=== PATIENT | male | born 1975 ===

== ENCOUNTER 2024-09-08 19:12 | Observation (INO) | payer SELFPAY ==
[2024-09-08] VITALS (29 sets, daily range): BP systolic 103–142; BP diastolic 70–89; PULSE 62–157; RESP 12–20; TEMP 36.6; O2SAT 99–100
--- NOTE | ~2024-09-08 | XR_ITS ---
EXAMINATION: XR chest 1V portable Exam Date/Time: 09/08/2024 20:00 CDT HISTORY: chest pain Comparison: None. RESULT: Lines, tubes, and devices: None. Lungs and pleura: Leftward rotation. No focal consolidation, pleural effusion, or pneumothorax. Mild diffuse reticular opacities with indistinct vessels. Cardiomediastinal silhouette: Stable. Other: No acute osseous or upper abdominal finding. IMPRESSION: Mild interstitial edema. Reviewed, dictated and finalized at location K. IMPRESSION: Mild interstitial edema.
--- NOTE | 2024-09-08 19:15 | ECG_ITS ---
Test Date: 2024-09-08 19:24:55 Measurements Intervals [place] Rate: 163 P: 0 DE: 0 QRS: 75 QRSD: 103 T: -14 QT: 266 QTc: 439 Interpretive Statements ATRIAL FIBRILLATION WITH RAPID VENTRICULAR RESPONSE INCOMPLETE RIGHT BUNDLE BRANCH BLOCK [90+ ms QRS DURATION, TERMINAL R IN V1/V2, 40+ ms S IN I/aVL/V4/V5/V6] NONSPECIFIC ST & T-WAVE ABNORMALITY No previous ECG available for comparison Electronically Signed On 09-09-2024 12:47:05 CDT by William Bustos M.D.
--- OUTSIDE RECORDS SUMMARY | 2024-09-08 19:15 | XMS_ITS | Clinical Summary ---
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 Gender Identity Not on file Sexual Orientation Not on file Plan of Treatment Health Maintenance Due Date Last Done Comments Hepatitis C Virus (HCV) Screening 1975 TdaP Immunization 1975 Hepatitis B Immunization (1 of 3 - 19+ 3-dose series) 11/19/1994 Colonoscopy 11/19/2020 Colorectal Cancer Screening 11/19/2020 Influenza Immunization (#1) 2024 SARS-COV-2 Immunization ( season) 2024 Respiratory Syncytial Virus (RSV) Immunization (Adult) (1 - 1-dose 75+ series) 11/19/2050 Meningococcal Immunization (ACWY) Aged Out No longer eligible based on patient's age to complete this topic Pneumococcal Immunization Combined Aged Out No longer eligible based on patient's age to complete this topic Rotavirus Immunization Aged Out No lo nger eligible based on patient's age to complete this topic
[2024-09-08 19:45] LABS: Basophils Absolute Auto 0.1 K/mm3 (0.0-0.1); Basophils Percent Auto 0.7 % (0.2-1.2); Eosinophils Absolute Auto 0.3 K/mm3 (0-0.3); Eosinophils Percent Auto 2.4 % (0-4.4); Hematocrit 45.4 % (42.0-52.0); Hemoglobin 14.8 g/dL (14.0-18.0); Immature Granulocyte Absolute 0.05 K/mm3 (0.00-0.031); Immature Granulocyte Percent A 0.5 % (0-0.5); Lymphocytes Absolute Auto 2.96 K/mm3 (0.9-3.2); Lymphocytes Percent Auto 27.8 % (18.3-44.2); Mean Corpuscular HGB Conc 32.6 g/dl (32-36); Mean Corpuscular Hemoglobin 30.4 pg (26-34); Mean Corpuscular Volume 93.2 fl (80-100); Mean Platelet Volume 10.3 fl (7.4-10.4); Monocytes Absolute Auto 0.8 K/mm3 (0.1-0.6); Monocytes Percent Auto 7.9 % (2.6-8.5); Neutrophils Absolute Auto 6.5 K/mm3 (1.3-6.7); Neutrophils Percent Auto 60.7 % (45.5-73.1); Platelet Count Result 217 k/mm3 (150-375); Red Blood Count 4.87 M/mm3 (4.6-6.20); White Blood Count 10.6 K/mm3 (4.5-10.0)
[2024-09-08] MEDS: ASPIRIN 81 MG CHEWABLE TABLET 324 MG PO (19:48)
[2024-09-08] MEDS: dilTIAZem HCl INJ 25 MG/5 ML VIAL 10 MG IV PUSH (19:49)
[2024-09-08] MEDS: dilTIAZem 100 MG/100 ML 100 MG/100 ML BAG IV CONT (19:52)
--- NOTE | 2024-09-08 19:54 | ED_ITS ---
HPI - Chest Pain General Chief Complaint: Chest Pain <JOSEPHINE Waddell Last Filed: 09/09/24 01:59> Stated Complaint: Chest pain, heart racing <JOSEPHINE Waddell Last Filed: 09/09/24 01:59> Time Seen by Provider: 09/08/24 19:45 <Dudley Traylor PA-C - Last Filed: 09/09/24 01:59> Source: patient <JOSEPHINE Waddell Last Filed: 09/09/24 01:59> Mode of arrival: ambulatory <JOSEPHINE Waddell Last Filed: 09/09/24 01:59> Limitations: no limitations <JOSEPHINE Waddell Last Filed: 09/09/24 01:59> History of Present Illness HPI narrative: This is a 40-year-old male who presents to the ED for chief complaint of chest pain and palpitations beginning around 5:00 a.m. this morning. Patient states that the pain is intermittent and only lasts a few minutes when it comes on. Pains reports pain to the left side of the chest. He does note some tingling through the fingers. States the palpitations have been intermittent as well and does feel like his heart is racing. Denies leg swelling, shortness of breath. Denies any specific exertional component to the pain. Denies cardiac history. States he smokes 1 pack per day. <Dudley Traylor PA-C - Last Filed: 09/09/24 01:59> Related Data Allergies/Adverse Reactions: Allergies Allergy/AdvReac Type Severity Reaction Status Date / Time No Known Allergies Allergy Unverified 09/08/24 19:12 <Dudley Traylor PA-C - Last Filed: 09/09/24 01:59> Review of Systems 2 Review of Systems: All systems as dictated in HPI <Dudley Traylor PA-C - Last Filed: 09/09/24 01:59> [facility] Social History Social History: Social History Smoking packs per day: 1 Smoking cigarettes per day: 20.0 Years smoked: 35 Smoking pack-years: 35.00 Smoking status: Current every day smoker Tobacco type: cigarettes Second hand tobacco smoke exposure: No Alcohol intake: current Drinks per week: 3 Substance use: never Do You Feel Safe in your Home?: Yes Lack of Transportation: No Lack of Food: Never True Current Housing: I Have Housing Concerned About Future Housing: No Difficulty Paying Gas/Electric Bills: No Difficulty Paying for Meds: No Currently Unemployed: No Education: High School Diploma/GED Difficulty w/ Childcare or Family Care: No Spiritual care concerns: No <Dudley Traylor PA-C - Last Filed: 09/09/24 01:59> Exam 2 Narrative: GENERAL: Well-appearing, well-nourished, and in no acute distress. HEAD: Normocephalic, atraumatic. EYES: PERRLA and EOMI. ENT: Nares clear, no rhinorrhea or epistaxis. Mucous membranes moist. Oropharynx without tonsillar hypertrophy exudate or other lesions. NECK: Supple. No adenopathy or masses. CHEST: No respiratory distress. Clear to auscultation. No wheezes rales or rhonchi HEART: Tachycardic, regular rhythm. No murmur heard. Normal peripheral pulses. ABDOMEN: Soft, nontender, nondistended, normal active bowel sounds. MSK: Normal range of motion. No edema. SKIN: Warm, dry, no rash. NEURO: Alert and oriented x4. No focal deficits. PSYCH: Normal mood and affect. <Dudley Traylor PA-C - Last Filed: 09/09/24 01:59> Course MANAGER STRATEGIC ALLIANCES/PA Physician Supervision For this patient encounter, I reviewed the MANAGER STRATEGIC ALLIANCES or PA documentation, treatment plan, and medical decision making; and I had [id number] time with this patient. <Jose Rafael Park MD - Last Filed: 09/15/24 07:18> Vital Signs Vital signs: Vital Signs Temperature 98 F 09/08/24 19:16 Pulse Rate 70 09/08/24 19:16 Respiratory Rate 15 09/08/24 19:16 Blood Pressure 142/87 H 09/08/24 19:16 Pulse Oximetry 100 09/08/24 19:16 Oxygen Delivery Room Air 09/08/24 19:16 Temperature 97.2 F L 09/09/24 14:00 Pulse Rate 57 L 09/09/24 16:00 Respiratory Rate 18 09/09/24 14:00 Blood Pressure 122/85 09/09/24 14:00 Pulse Oximetry 97 09/09/24 14:00 Oxygen Delivery Room Air 09/09/24 08:00 <Dudley Traylor PA-C - Last Filed: 09/09/24 01:59> Vital Signs Temperature 98 F 09/08/24 19:16 Pulse Rate 70 09/08/24 19:16 Respiratory Rate 15 09/08/24 19:16 Blood Pressure 142/87 H 09/08/24 19:16 Pulse Oximetry 100 09/08/24 19:16 Oxygen Delivery Room Air 09/08/24 19:16 Temperature 97.2 F L 09/09/24 14:00 Pulse Rate 57 L 09/09/24 16:00 Respiratory Rate 18 09/09/24 14:00 Blood Pressure 122/85 09/09/24 14:00 Pulse Oximetry 97 09/09/24 14:00 Oxygen Delivery Room Air 09/09/24 08:00 <Jose Rafael Park MD - Last Filed: 09/15/24 07:18> MDM - Chest Pain MDM Narrative Medical decision making narrative: This is a 40-year-old male who presents to the ED for chief complaint of intermittent palpitations and chest pain beginning this morning. Vitals on arrival are normal, however shortly after patient is placed on his initial EKG shows AFib with a rate in the 160s. Blood pressure stable in the 140s. Laboratory workup coming back remarkable for elevated troponin initially at 0.046 BNP elevated at 1930. D-dimer negative. 3 hour troponin flat at 0.045. Chest x-ray shows interstitial edema but no other acute findings. Heart score 4. Patient was started on diltiazem push and drip for AFib RVR. He did have good effect with the drip and actually converted to sinus rhythm while in the ED. Repeat EKG does show sinus rhythm, however there are T-wave inversions noted through anterior leads. No significant ST depression or ST elevation. Patient is agreeable to stay in the hospital for observation. Discussed case with hospitalist who agrees to admit the patient to [facility]. Plan for echo in the morning. <Dudley Traylor PA-C - Last Filed: 09/09/24 01:59> Lab Data Result diagrams: 09/08/24 19:36 09/09/24 06:46 <Dudley Traylor PA-C - Last Filed: 09/09/24 01:59> Labs: Lab Results 09/08/24 09/08/24 09/08/24 Range/Units 19:35 19:36 22:36 WBC 10.6 H (4.5-10.0) K/mm3 RBC 4.87 (4.6-6.20) M/mm3 Hgb 14.8 (14.0-18.0) g/dL Hct 45.4 (42.0-52.0) % MCV 93.2 (80-100) fl MCH 30.4 (26-34) pg MCHC 32.6 (32-36) g/dl RDW 13.0 (11.5-14.5) % Plt Count 217 (150-375) k/mm3 MPV 10.3 (7.4-10.4) fl Immature Gran % (Auto) 0.5 (0-0.5) % Neut % (Auto) 60.7 (45.5-73.1) % Lymph % (Auto) 27.8 (18.3-44.2) % [place] % (Auto) 7.9 (2.6-8.5) % Eos % (Auto) 2.4 (0-4.4) % Baso % (Auto) 0.7 (0.2-1.2) % Lymph # (Auto) 2.96 (0.9-3.2) K/mm3 [place] # (Auto) 0.8 H (0.1-0.6) K/mm3 Eos # (Auto) 0.3 (0-0.3) K/mm3 Baso # (Auto) 0.1 (0.0-0.1) K/mm3 Abs Immat Gran (auto) 0.05 H (0.00-0.031) K/mm3 Absolute Neuts (auto) 6.5 (1.3-6.7) K/mm3 Absolute Nucleated RBC 0.000 (0.0-0.012) K/mm3 Nucleated RBC % 0.0 (0.0-0.2) % PT 13.8 (11.1-14.7) Seconds INR 1.0 APTT 29.5 (22.3-36.8) Seconds D-Dimer < 0.27 (<0.48) ug/mL Sodium 141 (137-145) mmol/L Potassium 3.4 (3.4-5.0) mmol/L Chloride 103 (98-107) mmol/L Carbon Dioxide 30 (22-30) mmol/L Anion Gap 8 (4-12) mmol/L BUN 10 (9-20) mg/dL Creatinine 0.82 (0.7-1.3) mg/dL Estim Creat Clear Calc 109 ml/min Estimated GFR > 60 (59 - ) Glucose 142 H (65-110) mg/dL Calcium 9.2 (8.4-10.2) mg/dL Magnesium 2.1 (1.6-2.3) mg/dL Total Bilirubin 0.9 (0.2-1.3) mg/dL AST 19 (17-59) U/L ALT 22 (6-50) U/L Alkaline Phosphatase 69 (38-126) U/L Troponin I 0.046 H* 0.045 H* (0.000-0.034) ng/mL NT-Pro-B Natriuret Pep 1930 H (19.9-100) pg/mL Total Protein 7.0 (6.3-8.2) g/dL Albumin 4.3 (3.5-5.1) g/dL Lipase 16 L (23-300) U/L TSH 1.460 (0.465-4.680) uIU/mL <Dudley Traylor PA-C - Last Filed: 09/09/24 01:59> Lab Results 09/08/24 09/08/24 09/08/24 Range/Units 19:35 19:36 22:36 WBC 10.6 H (4.5-10.0) K/mm3 RBC 4.87 (4.6-6.20) M/mm3 Hgb 14.8 (14.0-18.0) g/dL Hct 45.4 (42.0-52.0) % MCV 93.2 (80-100) fl MCH 30.4 (26-34) pg MCHC 32.6 (32-36) g/dl RDW 13.0 (11.5-14.5) % Plt Count 217 (150-375) k/mm3 MPV 10.3 (7.4-10.4) fl Immature Gran % (Auto) 0.5 (0-0.5) % Neut % (Auto) 60.7 (45.5-73.1) % Lymph % (Auto) 27.8 (18.3-44.2) % [place] % (Auto) 7.9 (2.6-8.5) % Eos % (Auto) 2.4 (0-4.4) % Baso % (Auto) 0.7 (0.2-1.2) % Lymph # (Auto) 2.96 (0.9-3.2) K/mm3 [place] # (Auto) 0.8 H (0.1-0.6) K/mm3 Eos # (Auto) 0.3 (0-0.3) K/mm3 Baso # (Auto) 0.1 (0.0-0.1) K/mm3 Abs Immat Gran (auto) 0.05 H (0.00-0.031) K/mm3 Absolute Neuts (auto) 6.5 (1.3-6.7) K/mm3 Absolute Nucleated RBC 0.000 (0.0-0.012) K/mm3 Nucleated RBC % 0.0 (0.0-0.2) % PT 13.8 (11.1-14.7) Seconds INR 1.0 APTT 29.5 (22.3-36.8) Seconds D-Dimer < 0.27 (<0.48) ug/mL Sodium 141 (137-145) mmol/L Potassium 3.4 (3.4-5.0) mmol/L Chloride 103 (98-107) mmol/L Carbon Dioxide 30 (22-30) mmol/L Anion Gap 8 (4-12) mmol/L BUN 10 (9-20) mg/dL Creatinine 0.82 (0.7-1.3) mg/dL Estim Creat Clear Calc 109 ml/min Estimated GFR > 60 (59 - ) Glucose 142 H (65-110) mg/dL Calcium 9.2 (8.4-10.2) mg/dL Magnesium 2.1 (1.6-2.3) mg/dL Total Bilirubin 0.9 (0.2-1.3) mg/dL AST 19 (17-59) U/L ALT 22 (6-50) U/L Alkaline Phosphatase 69 (38-126) U/L Troponin I 0.046 H* 0.045 H* (0.000-0.034) ng/mL NT-Pro-B Natriuret Pep 1930 H (19.9-100) pg/mL Total Protein 7.0 (6.3-8.2) g/dL Albumin 4.3 (3.5-5.1) g/dL Lipase 16 L (23-300) U/L TSH 1.460 (0.465-4.680) uIU/mL <Jose Rafael Park MD - Last Filed: 09/15/24 07:18> Discharge Plan Discharge Clinical Impression: Paroxysmal A-fib, Chest pain <Dudley Traylor PA-C - Last Filed: 09/09/24 01:59> Patient Disposition: Still a Patient <Dudley Traylor PA-C - Last Filed: 09/09/24 01:59> Condition: Stable <Dudley Traylor PA-C - Last Filed: 09/09/24 01:59> Quality HEART score for chest pain patients History: slightly suspicious <Dudley Traylor PA-C - Last Filed: 09/09/24 01:59> ECG: non specific repolarization disturbance/LBTB/PM <Dudley Traylor PA-C - Last Filed: 09/09/24 01:59> Age: > 45 and < 65 years <Dudley Traylor PA-C - Last Filed: 09/09/24 01:59> Risk factors: 1 or 2 risk factors <Dudley Traylor PA-C - Last Filed: 09/09/24 01:59> Troponin: > 1 and < 3x normal limit <Dudley Traylor PA-C - Last Filed: 09/09/24 01:59> Heart score: 4 <Dudley Traylor PA-C - Last Filed: 09/09/24 01:59> 4 <Jose Rafael Park MD - Last Filed: 09/15/24 07:18>
--- NOTE | 2024-09-08 19:54 | PC.NURSE ---
ELHAM from EDP Dr. Park to titrate Cardizem drip to 7.5mg/hr
[2024-09-08 19:55] LABS: Alanine Aminotransferase 22 U/L (6-50); Albumin Level 4.3 g/dL (3.5-5.1); Alkaline Phosphatase 69 U/L (38-126); Anion Gap 8 mmol/L (4-12); Aspartate Amino Transferase 19 U/L (17-59); Bilirubin,Total 0.9 mg/dL (0.2-1.3); Blood Urea Nitrogen 10 mg/dL (9-20); Calcium 9.2 mg/dL (8.4-10.2); Carbon Dioxide 30 mmol/L (22-30); Chloride 103 mmol/L (98-107); Estimated CRCL calculation 109 ml/min; Estimated Glomerular Filt Rate > 60; Glucose 142 mg/dL (65-110); Lipase 16 U/L (23-300); Potassium 3.4 mmol/L (3.4-5.0); Sodium 141 mmol/L (137-145)
[2024-09-08 19:56] LABS: Prothrombin Time 13.8 Seconds (11.1-14.7)
[2024-09-08 19:57] LABS: Partial Thromboplastin Time 29.5 Seconds (22.3-36.8)
[2024-09-08] MEDS: LACTATED RINGERS 1,000 ML 999 ML IV CONT (19:57)
--- OUTSIDE RECORDS SUMMARY | 2024-09-08 20:03 | XMS_ITS | Clinical Summary ---
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
[2024-09-08 20:08] LABS: Troponin I 0.046 ng/mL (0.000-0.034)
[2024-09-08 20:23] LABS: D Dimer < 0.27 ug/mL (<0.48)
[2024-09-08 21:01] LABS: NT Pro B Type Natriuretic Pept 1930 pg/mL (19.9-100)
--- NOTE | 2024-09-08 21:23 | ECG_ITS ---
Test Date: 2024-09-08 21:27:43 Measurements Intervals [place] Rate: 60 P: 66 [place]: 151 QRS: 73 QRSD: 114 T: 55 QT: 394 QTc: 395 Interpretive Statements SINUS RHYTHM INCOMPLETE RIGHT BUNDLE BRANCH BLOCK [90+ ms QRS DURATION, TERMINAL R IN V1/V2, 40+ ms S IN I/aVL/V4/V5/V6] ST DEVIATION AND MODERATE T-WAVE ABNORMALITY, CONSIDER ANTERIOR ISCHEMIA [-0.1+ mV T-WAVE IN V3/V4] Compared to ECG 09/08/2024 19:24:55 Atrial fibrillation no longer present Electronically Signed On 09-09-2024 12:48:05 CDT by William Bustos M.D.
--- NOTE | 2024-09-08 21:31 | PC.NURSE ---
Pt converted to Normal Sinus Rhythm @2119. Provider made aware and VORB to pause Diltazem drip. Repeat EKG preformed.
[2024-09-08 21:47] LABS: Magnesium 2.1 mg/dL (1.6-2.3)
[2024-09-08 23:14] LABS: Troponin I 0.045 ng/mL (0.000-0.034)
[2024-09-09] VITALS (12 sets, daily range): BP systolic 114–131; BP diastolic 68–88; PULSE 57–93; RESP 15–18; TEMP 36.2–37; O2SAT 95–100; BMI 27.6
--- NOTE | 2024-09-09 | ECHO_ITS ---
Patient Info Name: Mason Flores Age: 48 years : 1975 Gender: Male Ht: 73 in Wt: 209 lbs BSA: 2.22 m2 HR: 70 bpm BP: 130 / 80 mmHg Heart Rhythm: Sinus Rhythm Technical Quality: Fair Exam Date: 09/09/2024 1:32 PM Exam Location: Echo Lab Patient Status: Inpatient Admit Date: 09/09/2024 Staff Ordering Physician: William Bustos MD (ana/luigi) Chief Cruiser: Martha Sher RDCS Attending Provider: Rose Barreto DO Referring Physician: Akash NIEVES; Exam Type: CA echo dop color flow w con Study Info Indications - Afib Complete two-dimensional, color flow and Doppler transthoracic echocardiogram is performed with contrast to opacify the left ventricle and to improve the deliniation of the left ventricle endocardial borders. Contrast/Agitated Saline Contrast/Ag. Saline: Definity Amount: 3.00 ml Administered By: Martha Sher RDCS Existing IV Access: Yes IV Access Condition: patent with no signs of infiltration Summary 1. Left ventricular chamber dimension is normal. 2. Left ventricular systolic function is normal, estimated at 55-60%. 3. The left ventricular diastolic function is grade I diastolic dysfunction. 4. Right ventricular systolic function is normal. 5. There is trivial anterior pericardial effusion. 6. No significant valvular disease. Left Ventricle Left ventricular chamber dimension is normal. Left ventricular systolic function is normal, estimated at 55-60%. There is no increased left ventricular wall thickness. The left ventricular diastolic function is grade I diastolic dysfunction. Right Ventricle Right ventricular chamber dimension is normal. Right ventricular systolic function is normal. Left Atria Left atrial chamber dimension is normal. Right Atria Right atrial chamber dimension is normal. Atrial Septum Intact interatrial septum visualized by color flow imaging. Aortic Valve The aortic valve is not well visualized. There is no aortic valve stenosis. There is trace aortic valve regurgitation. There is mild aortic valve calcification. Pulmonic Valve The pulmonic valve is not well visualized. Mitral Valve There is trace mitral valve regurgitation. Tricuspid Valve There is trace tricuspid valve regurgitation. Pericardium/Pleural There is trivial anterior pericardial effusion. Inferior Vena Cava Dilated inferior vena cava with <50% collapse upon inspiration consistent with elevated right atrial pressure, 15 mmHg. Aorta The aortic root size at the sinus of Valsalva is normal. Left Ventricular Outflow Tract Name Value Normal LVOT 2D LVOT Diameter 2.84 cm LVOT Doppler LVOT Peak Gradient 2 mmHg LVOT Mean Gradient 1 mmHg LVOT VTI 15.47 cm LVOT VTI/AV VTI Ratio 0.51 LVOT Stroke Volume 97.87 ml LVOT CO 5.67 l/min LVOT CI 2.55 L/min/m2 Pulmonic Valve Name Value Normal RVOT Doppler RVOT Peak Gradient 1 mmHg PV Doppler PV Peak Gradient 3 mmHg Mitral Valve Name Value Normal MV Doppler MV Decel Porter 247.31 cm/s2 MV PHT 0 s MV Area (PHT) 3.50 cm2 4.00-5.00 MV Diastolic Function MV E Peak Velocity 53.65 cm/s MV A Peak Velocity 54.91 cm/s MV E/A 0.98 MV Decel Time 0 s MV Annular TDI MV E/e' (Septal) 7.49 <=8.00 MV E/e' (Lateral) 5.51 <=8.00 MV E/e' (Average) 6.50 Tricuspid Valve Name Value Normal TV Regurgitation Doppler TR Peak Velocity 159.40 cm/s TR Peak Gradient 10 mmHg Estimated PAP/RSVP RA Pressure 15 mmHg <=5 PA Systolic Pressure 25 mmHg <36 RV Systolic Pressure 25 mmHg <36 Aorta Name Value Normal Ascending Aorta Ao Root Diameter (MM) 4.52 cm Ao Root Diam Index (MM) 2.03 cm/m2 Aortic Valve Name Value Normal AV Doppler AV Peak Velocity 159.72 cm/s AV Peak Gradient 10 mmHg AV Mean Gradient 5 mmHg AV VTI 30.09 cm AV Area (Cont Eq VTI) 3.25 cm2 >=3.00 AV Area (Cont Eq Tacho) 3.04 cm2 AV Regurgitation 2D LVOT Area 6.33 cm2 Ventricles Name Value Normal LV Dimensions 2D/MM IVS Diastolic Thickness (2D) 0.76 cm 0.60-1.00 LVID Diastole (2D) 5.33 cm 4.20-5.80 LVIW Diastolic Thickness (2D) 0.83 cm 0.60-1.00 LVID Systole (2D) 3.69 cm 2.50-4.00 LVOT Diameter 2.84 cm LV Mass (2D Cubed) 150.24 g 88.00-224.00 LV Mass Index (2D Cubed) 0.01 g/cm2 0.00-0.01 Relative Wall Thickness (2D) 0.31 LV Fractional Shortening/Ejection Fraction 2D/MM LV Fractional Shortening (2D) 31 % 25-43 LV EF (2D Teicholz) 58 % 52-72 LV Diastolic Volume (4C MOD) 98.32 ml LV EF (4C MOD) 60 % LV Diastolic Volume (2C MOD) 83.07 ml LV EF (2C MOD) 67 % LV Diastolic Volume (BP MOD) 92.96 ml 62.00-150.00 LV Diastolic Volume Index (BP MOD) 0.04 l/m2 0.03-0.07 LV Systolic Volume (BP MOD) 34.17 ml 21.00-61.00 LV Systolic Volume Index (BP MOD) 0.02 l/m2 0.01-0.03 LV EF (BP MOD) 63 % 52-72 LV Diastolic Length (4C) 9.88 cm LV Systolic Length (4C) 7.88 cm LV Stroke Volume (4C MOD) 59.07 ml Atria Name Value Normal LA Dimensions LA Dimension (MM) 3.97 cm 3.00-4.10 LA Volume (4C A-L) 51.93 ml LA Volume (BP A-L) 59.29 ml RA Dimensions RA Area (4C) 25.89 cm2 <=18.00 Report Signatures
--- NOTE | 2024-09-09 01:35 | ADMGEN ---
This patient, Mason Flores, was admitted to [facility] Surg Room 331-01. Patient/family oriented to hospital policies and general routines including ID bracelet, bed and alarms, visiting hours, pain management, procedures, bathroom and other care routines, personal items, smoking policy, room service/diet, and visiting hours. Information on how to activate the Rapid Response Team has been discussed. Patient/Family are encouraged to report perceived risks to care and to ask questions if they do not understand what they are told or what they should do.
[2024-09-09 07:04] LABS: Anion Gap 4 mmol/L (4-12); Blood Urea Nitrogen 9 mg/dL (9-20); Calcium 8.7 mg/dL (8.4-10.2); Carbon Dioxide 28 mmol/L (22-30); Chloride 107 mmol/L (98-107); Estimated CRCL calculation 131 ml/min; Estimated Glomerular Filt Rate > 60; Glucose 123 mg/dL (65-110); Potassium 3.5 mmol/L (3.4-5.0); Sodium 139 mmol/L (137-145)
[2024-09-09 07:38] LABS: Hemoglobin A1C 5.7 % (<5.7)
--- NOTE | 2024-09-09 07:56 | PM.IMHP ---
H&P: HPI History of Present Illness Date/Time: 09/09/24 07:56 Chief Complaint: chest pain and palpitations Narrative: 40-year-old male who presents to the ED for chief complaint of chest pain and palpitations beginning around 5:00 a.m. this morning. Patient states that the pain is intermittent and only lasts a few minutes when it comes on. Pains reports pain to the left side of the chest. He does note some tingling through the fingers. States the palpitations have been intermittent as well and does feel like his heart is racing. In ED patient started on Diltiazem push and drip for AFib RVR and converted to sinus rhythm.Repeat EKG does show sinus rhythm, however there are T-wave inversions noted through anterior leads. No significant ST depression or ST elevation. Pertinent ED labs: WBC 10.6,HgB 14.8, PLT 217,Na 139, K 3.5, BUN 9,Cr0.67 Troponin: 0.046, 0.045 BNP: 1930 TSH :1.460 Lipase: 1.460 Patient was evaluated at the bedside. Patient denies any drug abuse but smokes cigarettes 1 pack per day. Patient reports that he never had this chest pain before. Cardiology evaluated the patient. Since his echocardiogram is normal and the no elevation of troponin, as per Cardiology can be discharged from their standpoint of view. Patient during the evaluation insisted that he wants to go home. Advised on smoking cessation and follow-up with Cardiology. Review of Systems Review of Systems: All systems as dictated in HPI All systems reviewed & are unremarkable except as noted in HPI and below (HPI) [facility] Social History Social History Smoking packs per day: 1 Smoking cigarettes per day: 20.0 Years smoked: 35 Smoking pack-years: 35.00 Smoking status: Current every day smoker Tobacco type: cigarettes Second hand tobacco smoke exposure: No Alcohol intake: current Drinks per week: 3 Substance use: never Do You Feel Safe in your Home?: Yes Lack of Transportation: No Lack of Food: Never True Current Housing: I Have Housing Concerned About Future Housing: No Difficulty Paying Gas/Electric Bills: No Difficulty Paying for Meds: No Currently Unemployed: No Education: High School Diploma/GED Difficulty w/ Childcare or Family Care: No Spiritual care concerns: No Meds Home Medications and Allergies Home Medications ?Medication ?Instructions ?Recorded ?Confirmed ?Type metoprolol succinate 50 mg 50 mg PO QAM #30 tabs 09/09/24 Rx tablet,extended release 24 hr Allergies Allergy/AdvReac Type Severity Reaction Status Date / Time No Known Allergies Allergy Unverified 09/08/24 19:12 Vital Signs Vital Signs - 24 hr 09/08/24 19:16 09/08/24 19:41 09/08/24 19:45 Temperature 98 F Pulse Rate 70 153 H 149 H Respiratory Rate 15 15 20 Blood Pressure 142/87 H 132/82 Pulse Oximetry 100 100 100 Oxygen Delivery Room Air 09/08/24 19:47 09/08/24 19:52 09/08/24 19:55 Temperature Pulse Rate 157 H 154 H 143 H Respiratory Rate 12 Blood Pressure 109/89 109/89 109/89 Pulse Oximetry 100 Oxygen Delivery 09/08/24 20:00 09/08/24 20:15 09/08/24 20:16 Temperature Pulse Rate 138 H 95 101 H Respiratory Rate 15 15 15 Blood Pressure 123/86 Pulse Oximetry 100 100 Oxygen Delivery 09/08/24 20:17 09/08/24 20:18 09/08/24 20:30 Temperature Pulse Rate 100 100 Respiratory Rate 16 15 Blood Pressure Pulse Oximetry 100 Oxygen Delivery Room Air 09/08/24 20:31 09/08/24 20:46 09/08/24 21:00 Temperature Pulse Rate 105 H 117 H 154 H Respiratory Rate 15 17 Blood Pressure 111/78 114/73 Pulse Oximetry 100 100 Oxygen Delivery 09/08/24 21:30 09/08/24 21:30 09/08/24 21:31 Temperature Pulse Rate 65 64 65 Respiratory Rate 16 15 Blood Pressure 115/78 115/78 Pulse Oximetry Oxygen Delivery 09/08/24 21:45 09/08/24 21:45 09/08/24 21:46 Temperature Pulse Rate 62 63 63 Respiratory Rate 15 16 Blood Pressure 113/83 Pulse Oximetry Oxygen Delivery 09/08/24 22:00 09/08/24 22:01 09/08/24 22:02 Temperature Pulse Rate 62 64 62 Respiratory Rate 12 14 15 Blood Pressure 103/70 Pulse Oximetry 99 Oxygen Delivery 09/08/24 22:15 09/08/24 22:16 09/08/24 22:31 Temperature Pulse Rate 66 65 64 Respiratory Rate 15 15 15 Blood Pressure 113/89 117/81 Pulse Oximetry Oxygen Delivery 09/08/24 22:45 09/08/24 23:00 09/08/24 23:15 Temperature Pulse Rate 62 63 66 Respiratory Rate 13 12 20 Blood Pressure Pulse Oximetry Oxygen Delivery 09/08/24 23:30 09/09/24 01:00 09/09/24 01:15 Temperature Pulse Rate 71 63 62 Respiratory Rate 18 15 15 Blood Pressure Pulse Oximetry 95 98 Oxygen Delivery 09/09/24 01:16 09/09/24 01:21 09/09/24 01:48 Temperature 98.5 F Pulse Rate 63 63 63 Respiratory Rate 16 Blood Pressure 114/68 114/68 131/88 Pulse Oximetry 100 Oxygen Delivery 09/09/24 04:00 09/09/24 05:35 Temperature 98.6 F Pulse Rate 63 69 Respiratory Rate 16 Blood Pressure 130/80 Pulse Oximetry 100 Oxygen Delivery Exam Narrative: GENERAL: Well-appearing, well-nourished, and in no acute distress. HEAD: Normocephalic, atraumatic. EYES: PERRLA and EOMI. ENT: Nares clear, no rhinorrhea or epistaxis. Mucous membranes moist. Oropharynx without tonsillar hypertrophy exudate or other lesions. NECK: Supple. No adenopathy or masses. CHEST: No respiratory distress. Clear to auscultation. No wheezes rales or rhonchi HEART: Tachycardic, regular rhythm. No murmur heard. Normal peripheral pulses. ABDOMEN: Soft, nontender, nondistended, normal active bowel sounds. MSK: Normal range of motion. No edema. SKIN: Warm, dry, no rash. NEURO: Alert and oriented x4. No focal deficits. PSYCH: Normal mood and affect. Const: General: comfortable and no acute distress HENMT: Mouth: Yes moist mucous membranes Eyes: General: appearance normal, both eyes and all related structures Sclera: sclerae normal Resp: Effort & Inspection: normal respiratory effort Auscultation: clear to auscultation bilaterally Cardio: Rate: regular rate Rhythm: regular rhythm Heart sounds: no murmurs Skin: General skin exam: normal color Neuro: Speech: normal speech Psych: Mental Status: mental status grossly normal Affect: normal affect H&P: Results Labs Labs: Short CBC 09/08/24 Range/Units 19:36 WBC 10.6 H (4.5-10.0) K/mm3 Hgb 14.8 (14.0-18.0) g/dL Hct 45.4 (42.0-52.0) % Plt Count 217 (150-375) k/mm3 BMP 09/08/24 09/09/24 19:36 06:46 Sodium 141 139 Potassium 3.4 3.5 Chloride 103 107 Carbon Dioxide 30 28 BUN 10 9 Creatinine 0.82 0.67 L Glucose 142 H 123 H Calcium 9.2 8.7 Cardiac Enzymes 09/08/24 09/08/24 Range/Units 19:36 22:36 Troponin I 0.046 H* 0.045 H* (0.000-0.034) ng/mL Liver Function 09/08/24 Range/Units 19:36 Total Bilirubin 0.9 (0.2-1.3) mg/dL AST 19 (17-59) U/L ALT 22 (6-50) U/L Alkaline Phosphatase 69 (38-126) U/L Albumin 4.3 (3.5-5.1) g/dL Assessment and Plan Assessment and plan (1) Chest pain: Code(s): R07.9 - Chest pain, unspecified Status: Acute (2) Paroxysmal A-fib: Code(s): I48.0 - Paroxysmal atrial fibrillation Status: Acute Plan Non ST elevation [place] -Trend Troponin -Order Lipid panel -HbA1c 5.7 -Echocardiogram pending -Denies any illicit drug use -chronic smoker -Reviewed EKG and CXR -Cardiology consulted A.Fib -New onset. -Normal TSH -Denies alcoholism, drug abuse, excessive caffeine intake? -Will evaluate for PAPO -[id number] ) -S/P Diltiazem drip and Diltiazem 25 mg PO -reviewed echo Hospitalist MIPS Advance Care Plan I have confirmed that the patient's Advanced Care Plan is present, code status is documented, or surrogate decision maker is listed in patient medical record.: Yes Medication Reconciliation I have utilized all available resources to obtain, update and review the patients current medications (includes all prescriptions, OTC, herbals, cannabis, and nutritional supplements).: Yes
[2024-09-09 09:01] LABS: Cholesterol 114 mg/dL (0-200); HDL Direct 43 mg/dL; Triglycerides 77 mg/dL (<150)
[2024-09-09 09:11] LABS: LDL Cholesterol Direct 46 mg/dL
--- NOTE | 2024-09-09 10:15 | PM.CNCAR ---
Assessment and Plan Assessment and plan (1) Paroxysmal A-fib: Code(s): I48.0 - Paroxysmal atrial fibrillation Status: Acute Plan 1. Paroxysmal atrial fibrillation with RVR. New diagnosis of AFIB for the patient. TSH level normal. 2. Elevated troponins. Flat. Not in a pattern consistent with ACS. Likely due to demand ischemia from AFIB with RVR. 3. Tobacco dependence PLAN: -Start Toprol 50mg once daily. -[id number] of 0 at this time, anticoagulation not indicated. -Recommend outpatient sleep study to evaluate for PAPO. -Echocardiogram ordered. -If echocardiogram without significant abnormality, then patient can be discharged today. Will arrange close outpatient follow up in my office. Recommendations and plan discussed with Hospitalist. History of Present Illness History of Present Illness Consult date/time: 09/09/24 10:15 Requesting physician: Julio Amador MD Consult reason: atrial fibrillation Reason For Visit: paroxysmal atrial fibrillation Narrative: We are consulted for new atrial fibrillation. Mason is a 48 year old male with tobacco dependence who presented with palpitations and chest pain. He reports that yesterday morning he developed rapid palpitations associated with some mild chest pain. In the ED, he was noted to be in atrial fibrillation with RVR with heart rates in the 160s. Started on Diltiazem drip, and ended up spontaneously converting in the ED. He has remained in sinus rhythm since then. Once in sinus rhythm, all his symptoms resolved and he is now feeling well without any complaints. Troponins are 0.046, 0.045. NT pro BNP 1930. TSH level normal. EKG after converting shows sinus rhythm with T-wave abnormality in the anterior leads. Review of Systems Review of Systems: All systems reviewed & are unremarkable except as noted in HPI and below (HPI) [facility] Social History Social History Smoking packs per day: 1 Smoking cigarettes per day: 20.0 Years smoked: 35 Smoking pack-years: 35.00 Smoking status: Current every day smoker Tobacco type: cigarettes Second hand tobacco smoke exposure: No Alcohol intake: current Drinks per week: 3 Substance use: never Do You Feel Safe in your Home?: Yes Lack of Transportation: No Lack of Food: Never True Current Housing: I Have Housing Concerned About Future Housing: No Difficulty Paying Gas/Electric Bills: No Difficulty Paying for Meds: No Currently Unemployed: No Education: High School Diploma/GED Difficulty w/ Childcare or Family Care: No Spiritual care concerns: No Meds Home Medications and Allergies Home Medications ?Medication ?Instructions ?Recorded ?Confirmed ?Type No Home Medications 09/09/24 09/09/24 History Allergies Allergy/AdvReac Type Severity Reaction Status Date / Time No Known Allergies Allergy Unverified 09/08/24 19:12 Vital Signs Vital Signs - 24 hr 09/08/24 19:16 09/08/24 19:41 09/08/24 19:45 Temperature 36.6 C Pulse Rate 70 153 H 149 H Respiratory Rate 15 15 20 Blood Pressure 142/87 H 132/82 Pulse Oximetry 100 100 100 Oxygen Delivery Room Air 09/08/24 19:47 09/08/24 19:52 09/08/24 19:55 Temperature Pulse Rate 157 H 154 H 143 H Respiratory Rate 12 Blood Pressure 109/89 109/89 109/89 Pulse Oximetry 100 Oxygen Delivery 09/08/24 20:00 09/08/24 20:15 09/08/24 20:16 Temperature Pulse Rate 138 H 95 101 H Respiratory Rate 15 15 15 Blood Pressure 123/86 Pulse Oximetry 100 100 Oxygen Delivery 09/08/24 20:17 09/08/24 20:18 09/08/24 20:30 Temperature Pulse Rate 100 100 Respiratory Rate 16 15 Blood Pressure Pulse Oximetry 100 Oxygen Delivery Room Air 09/08/24 20:31 09/08/24 20:46 09/08/24 21:00 Temperature Pulse Rate 105 H 117 H 154 H Respiratory Rate 15 17 Blood Pressure 111/78 114/73 Pulse Oximetry 100 100 Oxygen Delivery 09/08/24 21:30 09/08/24 21:30 09/08/24 21:31 Temperature Pulse Rate 65 64 65 Respiratory Rate 16 15 Blood Pressure 115/78 115/78 Pulse Oximetry Oxygen Delivery 09/08/24 21:45 09/08/24 21:45 09/08/24 21:46 Temperature Pulse Rate 62 63 63 Respiratory Rate 15 16 Blood Pressure 113/83 Pulse Oximetry Oxygen Delivery 09/08/24 22:00 09/08/24 22:01 09/08/24 22:02 Temperature Pulse Rate 62 64 62 Respiratory Rate 12 14 15 Blood Pressure 103/70 Pulse Oximetry 99 Oxygen Delivery 09/08/24 22:15 09/08/24 22:16 09/08/24 22:31 Temperature Pulse Rate 66 65 64 Respiratory Rate 15 15 15 Blood Pressure 113/89 117/81 Pulse Oximetry Oxygen Delivery 09/08/24 22:45 09/08/24 23:00 09/08/24 23:15 Temperature Pulse Rate 62 63 66 Respiratory Rate 13 12 20 Blood Pressure Pulse Oximetry Oxygen Delivery 09/08/24 23:30 09/09/24 01:00 09/09/24 01:15 Temperature Pulse Rate 71 63 62 Respiratory Rate 18 15 15 Blood Pressure Pulse Oximetry 95 98 Oxygen Delivery 09/09/24 01:16 09/09/24 01:21 09/09/24 01:48 Temperature 36.9 C Pulse Rate 63 63 63 Respiratory Rate 16 Blood Pressure 114/68 114/68 131/88 Pulse Oximetry 100 Oxygen Delivery 09/09/24 04:00 09/09/24 05:35 Temperature 37.0 C Pulse Rate 63 69 Respiratory Rate 16 Blood Pressure 130/80 Pulse Oximetry 100 Oxygen Delivery Exam Const: General: comfortable and no acute distress HENMT: Mouth: Yes moist mucous membranes Eyes: General: appearance normal, both eyes and all related structures Sclera: sclerae normal Resp: Effort & Inspection: normal respiratory effort Auscultation: clear to auscultation bilaterally Cardio: Rate: regular rate Rhythm: regular rhythm Heart sounds: no murmurs Skin: General skin exam: normal color Neuro: Speech: normal speech Psych: Mental Status: mental status grossly normal Affect: normal affect Results Labs and Meds 09/08/24 19:36 09/09/24 06:46 Lab results: Cardiac Enzymes 09/08/24 09/08/24 Range/Units 19:36 22:36 AST 19 (17-59) U/L Troponin I 0.046 H* 0.045 H* (0.000-0.034) ng/mL Coagulation 09/08/24 Range/Units 19:36 PT 13.8 (11.1-14.7) Seconds APTT 29.5 (22.3-36.8) Seconds Lipids 09/09/24 Range/Units 06:46 Triglycerides 77 (<150) mg/dL Cholesterol 114 (0-200) mg/dL CBC 09/08/24 Range/Units 19:36 WBC 10.6 H (4.5-10.0) K/mm3 RBC 4.87 (4.6-6.20) M/mm3 Hgb 14.8 (14.0-18.0) g/dL Hct 45.4 (42.0-52.0) % Plt Count 217 (150-375) k/mm3 Lymph # (Auto) 2.96 (0.9-3.2) K/mm3 [place] # (Auto) 0.8 H (0.1-0.6) K/mm3 Eos # (Auto) 0.3 (0-0.3) K/mm3 Baso # (Auto) 0.1 (0.0-0.1) K/mm3 Comprehensive Metabolic Panel 09/08/24 09/09/24 Range/Units 19:36 06:46 Sodium 141 139 (137-145) mmol/L Potassium 3.4 3.5 (3.4-5.0) mmol/L Chloride 103 107 (98-107) mmol/L Carbon Dioxide 30 28 (22-30) mmol/L BUN 10 9 (9-20) mg/dL Creatinine 0.82 0.67 L (0.7-1.3) mg/dL Glucose 142 H 123 H (65-110) mg/dL Calcium 9.2 8.7 (8.4-10.2) mg/dL AST 19 (17-59) U/L ALT 22 (6-50) U/L Alkaline Phosphatase 69 (38-126) U/L Total Protein 7.0 (6.3-8.2) g/dL Albumin 4.3 (3.5-5.1) g/dL Intake and Output 09/08/24 09/09/24 09/09/24 23:59 07:59 15:59 Intake Total 1012.2 25 Balance 1012.2 25 Intake: IV 1012.2 0 Lactated Ringers 1,000 ml @ 999 1000 mls/hr IV CONT .Q1H1M STA Rx#: [id number] dilTIAZem 100 MG/100 ML 100 mg 12.2 0 In 100 ml @ 5 MG/HR 5 mls/hr IV CONT .Q20H STA Rx#:[id number] Oral 25 Patient Weight 09/09/24 23:59 Weight 94.9 kg
[2024-09-09] MEDS: METOPROLOL SUCCINATE EXT REL 50 MG TABCR PO (11:24)
[2024-09-09] MEDS: PERFLUTREN LIPID MICROSPHERES 1.5 ML VIAL DILUTED TO 10 ML TOTAL VOLUME IV PUSH (14:00)
--- NOTE | 2024-09-09 14:27 | IVDEFINITY ---
Prior to administration of IV Definity the patient was educated on the risks and benefits of the imaging enhancing agent including potential adverse side effects. The patient verbalized understanding. Allergies were verified. No exclusion criteria were identified and at least one of the following inclusion criteria were met: 1) physician request, 2) patient technically difficult to image (per the [place] [employer] guidelines of two or more segments not discernable within the apical view), or 3) questionable left ventricular function. ?
--- NOTE | 2024-09-09 16:16 | P.DS_ITS ---
DS: Admitting Diagnosis Discharge Date 09/09/2024 Admitting Diagnosis Chest pain DS: Discharge Diagnosis Discharge Diagnosis (1) Chest pain: Code(s): R07.9 - Chest pain, unspecified Status: Acute (2) Paroxysmal A-fib: Code(s): I48.0 - Paroxysmal atrial fibrillation Status: Acute Plan Non ST elevation [place] -Trend Troponin -Order Lipid panel -HbA1c 5.7 -Echocardiogram pending -Denies any illicit drug use -chronic smoker -Reviewed EKG and CXR -Cardiology consulted A.Fib -New onset. -Normal TSH -Denies alcoholism, drug abuse, excessive caffeine intake? -Will evaluate for PAPO -[id number] ) -S/P Diltiazem drip and Diltiazem 25 mg PO -reviewed echo DS: Summary Hospital Course Hospital Course: 40-year-old male who presents to the ED for chief complaint of chest pain and palpitations beginning around 5:00 a.m. this morning. Patient states that the pain is intermittent and only lasts a few minutes when it comes on. Pains reports pain to the left side of the chest. He does note some tingling through the fingers. States the palpitations have been intermittent as well and does feel like his heart is racing. In ED patient started on Diltiazem push and drip for AFib RVR and converted to sinus rhythm.Repeat EKG does show sinus rhythm, however there are T-wave inversions noted through anterior leads. No significant ST depression or ST elevation. Pertinent ED labs: WBC 10.6,HgB 14.8, PLT 217,Na 139, K 3.5, BUN 9,Cr0.67 Troponin: 0.046, 0.045 BNP: 1930 TSH :1.460 Lipase: 1.460 Patient was evaluated at the bedside. Patient denies any drug abuse but smokes cigarettes 1 pack per day. Patient reports that he never had this chest pain before. Cardiology evaluated the patient. Since his echocardiogram is normal and the no elevation of troponin, as per Cardiology can be discharged from their standpoint of view. Patient during the evaluation insisted that he wants to go home. Advised on smoking cessation and follow-up with Cardiology. Patient is discharged with metoprolol succinate 50 mg p.o. q.d. and advised to close follow-up with Cardiology Status at Discharge Cognitive/behavioral status at discharge: Stable Time Spent with Patient Time attestation: Total time spent providing and/or coordinating discharge services:45 minutes Exam Narrative: GENERAL: Well-appearing, well-nourished, and in no acute distress. HEAD: Normocephalic, atraumatic. EYES: PERRLA and EOMI. ENT: Nares clear, no rhinorrhea or epistaxis. Mucous membranes moist. Oropharynx without tonsillar hypertrophy exudate or other lesions. NECK: Supple. No adenopathy or masses. CHEST: No respiratory distress. Clear to auscultation. No wheezes rales or rhonchi HEART: Tachycardic, regular rhythm. No murmur heard. Normal peripheral pulses. ABDOMEN: Soft, nontender, nondistended, normal active bowel sounds. MSK: Normal range of motion. No edema. SKIN: Warm, dry, no rash. NEURO: Alert and oriented x4. No focal deficits. PSYCH: Normal mood and affect. Const: General: comfortable and no acute distress HENMT: Mouth: Yes moist mucous membranes Eyes: General: appearance normal, both eyes and all related structures Sclera: sclerae normal Resp: Effort & Inspection: normal respiratory effort Auscultation: clear to auscultation bilaterally Cardio: Rate: regular rate Rhythm: regular rhythm Heart sounds: no murmurs Skin: General skin exam: normal color Neuro: Speech: normal speech Psych: Mental Status: mental status grossly normal Affect: normal affect DS: Data Data Completed and Pending Labs on day of discharge: Labs from last 24 hours 09/09/24 09/08/24 09/08/24 06:46 22:36 19:36 WBC 10.6 H RBC 4.87 Hgb 14.8 Hct 45.4 MCV 93.2 MCH 30.4 MCHC 32.6 RDW 13.0 Plt Count 217 MPV 10.3 Immature Gran % (Auto) 0.5 Neut % (Auto) 60.7 Lymph % (Auto) 27.8 Mcdonough % (Auto) 7.9 Eos % (Auto) 2.4 Baso % (Auto) 0.7 Lymph # (Auto) 2.96 Mcdonough # (Auto) 0.8 H Eos # (Auto) 0.3 Baso # (Auto) 0.1 Abs Immat Gran (auto) 0.05 H Absolute Neuts (auto) 6.5 Absolute Nucleated RBC 0.000 Nucleated RBC % 0.0 PT 13.8 INR 1.0 APTT 29.5 D-Dimer Sodium 139 141 Potassium 3.5 3.4 Chloride 107 103 Carbon Dioxide 28 30 Anion Gap 4 8 BUN 9 10 Creatinine 0.67 L 0.82 Estim Creat Clear Calc 131 109 Estimated GFR > 60 > 60 Glucose 123 H 142 H Hemoglobin A1c 5.7 Calcium 8.7 9.2 Magnesium 2.1 Total Bilirubin 0.9 AST 19 ALT 22 Alkaline Phosphatase 69 Troponin I 0.045 H* 0.046 H* NT-Pro-B Natriuret Pep Total Protein 7.0 Albumin 4.3 Triglycerides 77 Cholesterol 114 LDL Cholesterol Direct 46 HDL Direct 43 Lipase 16 L TSH 1.460 09/08/24 19:35 WBC RBC Hgb Hct MCV MCH MCHC RDW Plt Count MPV Immature Gran % (Auto) Neut % (Auto) Lymph % (Auto) Mcdonough % (Auto) Eos % (Auto) Baso % (Auto) Lymph # (Auto) Mcdonough # (Auto) Eos # (Auto) Baso # (Auto) Abs Immat Gran (auto) Absolute Neuts (auto) Absolute Nucleated RBC Nucleated RBC % PT INR APTT D-Dimer < 0.27 Sodium Potassium Chloride Carbon Dioxide Anion Gap BUN Creatinine Estim Creat Clear Calc Estimated GFR Glucose Hemoglobin A1c Calcium Magnesium Total Bilirubin AST ALT Alkaline Phosphatase Troponin I NT-Pro-B Natriuret Pep 1930 H Total Protein Albumin Triglycerides Cholesterol LDL Cholesterol Direct HDL Direct Lipase TSH Discharge Plan Discharge Attending physician on discharge: Julio Amador Consulting providers: Johnny Munoz; William Bustos Discharging Clinician: Julio Amador Anticipated Discharge Date/Time: 09/09/24 15:56 Patient Disposition: Home, Self-Care Activity: as tolerated Diet: heart healthy Discharge Instructions: Advised on Smoking cessation. Encouraged to eat healthy and exercise If chest pain returns seek immediate medical care Patient Instructions: Antibiotic Form Patient Language: Vincentian Stand Alone Forms: General Discharge Information Follow-up/Referrals: PHYSICIAN,PLANT ANATOMIST [Primary Care Provider] - William Bustos MD [Physician] - Discharge Medications: New metoprolol succinate 50 mg Tablet Extended Release 24 Hr 50 mg PO QAM Qty: 30 0RF Date of admission: 09/09/24 00:15 Primary Care Provider: PHYSICIAN,PLANT ANATOMIST Admitting Provider: Rose Barreto Attending physician on admission: Rose Barreto Condition: Stable
== END 2024-09-09 17:15 | disposition home or self-care (01) ==
LOC: ANHED 09-09 00:18 → ANH3MEDSUR 09-09 16:00
PROVIDERS: Emergency Medicine; Admitting Provider Internal Medicine; Emergency Provider Physician Assistant; Visit Provider General Practice
DX: I48.0 Paroxysmal atrial fibrillation (principal); R79.89 Other specified abnormal findings of blood chemistry; F17.210 Nicotine dependence, cigarettes, uncomplicated
CPT/HCPCS: 36415; 71045; 80048; 80053; 80061; 83036; 83690; 83735; 83880; 84443; 84484; 85025; 85380; 85610; 85730; 93005; 96361; 96374; 96375; 99285; A9270; C8929; G0378; J7120; Q9957